=== PATIENT | male | born 1950 | race Caucasian/White ===

== ENCOUNTER 2019-02-20 07:37 | Day surgery (SDC) | payer MEDICARE ==
[~2019-02-20 07:37] MED LIST: ADVIL200 MG PO; AMOXICILLIN250 M1 OR; ASPIRIN ADULT L81 M3 PO; BACTRIM DS1 TAB PO; BL ADULT ASA81 MG OR; CIPROFLOXACN500 MG PO; CO Q-10100 MG OR; DILAUDID 2MG2 MG/TA1 PO; DIOVAN160 MG PO; LIPITOR20 M1 PO; METO100T50 PO; METOPROL TAR50 MG OR; NORVASC5 M1 PO; PROTONIX40 M2 PO; SIMVASTATIN40 MG OR; SIMVASTATIN80 MG PO; TAMSULOSIN HCL0.4 MG PO; TYLENOL 500MG TAB PO; VITAMIN D31000 UNI1 PO
[2019-02-20 09:49] VITALS: BP 149/74
== END 2019-02-20 10:05 | disposition home or self-care (01) ==
LOC: ENDO 07:37 → ORM 09:00 → ENDO 10:05 → ORM 11:00
PROVIDERS: ATTEND Surgery
PROC: 0DJD8ZZ Inspection of Lower Intestinal Tract, Via Natural or Artificial Opening Endoscopic (ICD-10-PCS; principal; 2019-02-20)
PROC: 0DJ08ZZ Inspection of Upper Intestinal Tract, Via Natural or Artificial Opening Endoscopic (ICD-10-PCS; 2019-02-20)
DX: Z12.11 Encounter for screening for malignant neoplasm of colon (principal); R13.10 Dysphagia, unspecified; K21.9 Gastro-esophageal reflux disease without esophagitis; K64.8 Other hemorrhoids; Z86.010 Personal history of colon polyps; Z79.899 Other long term (current) drug therapy
CPT/HCPCS: 43235; G0105

== ENCOUNTER 2020-11-15 09:14 | Emergency (ER) | payer MEDICARE ==
[2020-11-15] MEDS ORDERED: LABETALOL200 MG PO (09:44)
[2020-11-15 09:48] LABS: HEMATOCRIT 48.1 % (39.0-50.0); HEMOGLOBIN 15.9 g/dl (14.0-18.0); IMMATURE GRANULOCYTES 0.1 % (0.0-5.0); MEAN CELL VOLUME 87.1 fL CALC (80.0-100.0); MEAN CORPUSCULAR HGB 28.8 pG CALC (26.0-32.0); MEAN CORPUSCULAR HGB CONC 33.1 g/dL CAL (32.0-36.0); NEUT# 4.54 thou/uL (1.82-7.42); RED BLOOD COUNT 5.52 mill/uL (4.70-6.10); RED CELL DISTRI WIDTH 13.5 % (11.5-15.5)
[2020-11-15 10:00] LABS: ALBUMIN 4.6 g/dL (3.2-5.0); CREATININE 1.7 mg/dL (0.7-1.3); TOTAL PROTEIN 7.7 g/dL (6.3-8.2)
[2020-11-15 10:02] LABS: BILIRUBIN, TOTAL 1.3 mg/dL (0.0-1.4)
[2020-11-15 11:24] LABS: URINE BLOOD DIPSTICK NEGATIVE (NEGATIVE); URINE COLOR YELLOW; URINE GLUCOSE - DIPSTICK NEGATIVE (NEGATIVE); URINE KETONE TRACE mg/dL (NEGATIVE); URINE LEUK ESTERASE NEGATIVE (NEGATIVE); URINE PH 5.5 (4.5-8.0); URINE PROTEIN - DIPSTICK >=300 mg/dL (NEG-TRACE); URINE SPECIFIC GRAVITY >=1.030; URINE UROBILINOGEN - DIPSTICK 0.2 E.U./dL (0.2)
[2020-11-15 11:30] LABS: URINE BILIRUBIN - DIPSTICK SMALL (NEGATIVE)
[2020-11-15 11:31] LABS: URINE NITRITE - DIPSTICK NEGATIVE (Negative)
[2020-11-15 11:33] LABS: URINE SQUAMOUS EPITHELIAL CELL MODERATE EPI/hpf (0-FEW); URINE TRANSITIONAL EPI. CELLS FEW hpf
[2020-11-15] MEDS ORDERED: ZOFRAN4 M1 PO (12:48)
[2020-11-15 12:59] VITALS: BP 147/65
== END 2020-11-15 12:59 | disposition left against medical advice (07) ==
LOC: ED 09:14
PROVIDERS: Family Medicine
DX: K56.609 Unspecified intestinal obstruction, unspecified as to partial versus complete obstruction (principal); I10 Essential (primary) hypertension; Z91.19 Patient's noncompliance with other medical treatment and regimen; Z20.822 Contact with and (suspected) exposure to COVID-19
CPT/HCPCS: Q9967